=== PATIENT | female | born 1955 | race Caucasian/White ===

== ENCOUNTER → 2017-01-17 | Outpatient (CLI) | payer OTHER ==
[~2017-01-17] MED LIST: ALBUTEROL2.5 MG/31 INH; ASPIRIN325 MG PO; ATIVAN 1 MG1 MG PO; BENICAR HCT 401 EAC1 PO; BYSTOLIC10 MG PO; COLACE100 MG PO; CORDARONE,PACE200 MG PO; K-TAB 10MEQ10 MEQ PO; LASIX40 MG PO; LIPITOR80 MG PO; NICODERM / HABIT7 MG TRANS; NITROGLYCERIN4.9 GM SL; NORCO 5-325 TA1 EACH PO; NORVASC2.5 MG PO; PLAVIX75 MG PO; SYMBICORT 16010.2 GM INH
== END | disposition disaster alternative care site (69) ==
LOC: GBCOE 11:07
DX: N63 Unspecified lump in breast (principal); N60.01 Solitary cyst of right breast; R58 Hemorrhage, not elsewhere classified; Z80.3 Family history of malignant neoplasm of breast
CPT/HCPCS: G0204; G0279

== ENCOUNTER → 2017-01-23 | Outpatient (CLI) | payer OTHER ==
[~2017-01-23] VITALS: Ht 157.5 cm; Wt 87.3 kg
--- NOTE | 2017-01-23 11:44 | NUR ---
Met with patient prior to breast biopsy. Introduced self and role of nurse navigator. No questions at this time. Will call patient tomorrow.
== END | disposition disaster alternative care site (69) ==
LOC: GOPD 01-22
PROC: 0H9T3ZX Drainage of Right Breast, Percutaneous Approach, Diagnostic (ICD-10-PCS; principal; 2017-01-23)
DX: N64.1 Fat necrosis of breast (principal); N63 Unspecified lump in breast
CPT/HCPCS: J7050

== ENCOUNTER 2017-03-30 11:30 | Outpatient (CLI) | payer MEDICARE, OTHER ==
[~2017-03-30] VITALS: Ht 157.5 cm; Wt 92.7 kg
--- NOTE | ~2017-03-30 | ENPV ---
Vascular Lower Arterial Plethysmography Procedure Demographics Patient Name CHAZ JEFF Date of Study 03/30/2017 Patient Number [id number] Gender Female Date of 1955 Age 61 Visit Number [id number] Height 62 Weight 204.37 Number Referring Chavez Nicoleotis Interpreting Lorinou Bonnieotiderick Physician A Physician A Physician Ordering Efstratiou Panayotis Forestry Supervisor Physician A End User Consultant Chiki Munoz, T Conclusions Summary Right ankle/brachial index is 1.03 with no significant arterial disease at rest. Left ankle/brachial index is 0.77 with moderate arterial disease at rest. Right toe/brachial index is 0.77 and within normal limits. Left toe/brachial index is 0.56 suggestive of moderate arterial disease. The left brachial blood pressure is >20mmHg greater than the right brachial blood pressure suggestive of a more proximal right upper extremity obstruction (subclavian stenosis). Procedure Type of Study: Extremities Arteries:Lower Arterial Plethysmography, Ankle/Brachial Indicies. Indications for Study:Claudication and Reduced/Absent pulses. Appropriate Use Criteria:7 Allergies - Penicillin. - Penicillin. - Cephalosporines. - Other:(Cefaclor). Blood Pressure:Right arm 167/ mmHg.Left arm 205/ mmHg. Patient Status:Routine. Study Location:Inpatient Portable. Technical Quality:Adequate visualization. Risk Factors - The patient's risk factor(s) include: dyslipidemia and arterial hypertension. Velocities are measured in cm/s ; Diameters are measured in cm Pressures + ++--------+-----+----+--------+-----+ ! !!Right ! !Left! ! ! + ++--------+-----+----+--------+-----+ !Location !!Pressure!Ratio! !Pressure!Ratio! + ++--------+-----+----+--------+-----+ !Ankle PT !!207 !1.01 ! !158 !0.77 ! + ++--------+-----+----+--------+-----+ !DP !!211 !1.03 ! !143 !0.7 ! + ++--------+-----+----+--------+-----+ !Great Toe !!157 !0.77 ! !115 !0.56 ! + ++--------+-----+----+--------+-----+ - Brachial Pressure:Right: 167.Left:205. - MARJORIE:Right: 1.03.Left: 0.77. Plethysmographic Digit Evaluation +---------++--------+-----+ ++--------+-----+ + ! !!Right ! !Left !! ! ! ! +---------++--------+-----+ ++--------+-----+ + !Location !!Pressure!Ratio!PPG Wave Form !!Pressure!Ratio!PPG Wave Form ! +---------++--------+-----+ ++--------+-----+ + !Great Toe!!157 !0.77 ! !!115 !0.56 ! ! +---------++--------+-----+ ++--------+-----+ + Signature dtt: Tiffany Byrne dtd: 03/30/17 1203 Physician Self Edit
--- NOTE | ~2017-03-30 | ECHO ---
Transthoracic Echocardiography Report (TTE) Demographics Patient Name CHAZ JEFF Date of Study 03/30/2017 Patient Number [id number] Visit Number [id number] Date of 1955 Room Number G6305 Gender Female Number Age 61 year(s) Referring Chavez Obregon Residential Child Care Counselor Akira Maldonado RVT Physician Samantha STACY Physician Interpreting [facility] Wood Heel Flap Inserter Physician Mindi Singh MD Supervising Ordering [facility] MD/MLP Physician Mindi Singh MD Nurse Stress Patient Service Associate Conclusions Summary Technically difficult exam. The estimated left ventricular ejection fraction is 55-60%. Moderate concentric left ventricular hypertrophy. Diastolic assessment reveals Grade I diastolic dysfunction. The aortic root appears mildly dilated. The maximum diameter measures 3.2 cm. Procedure Type of Study TTE procedure:2D Echocardiogram. Procedure Date Date: 03/30/2017 Start: 12:20 PM Study Location: Inpatient Portable Technical Quality: Limited visualization due to body habitus. Indications:Angina. Appropriate Use Criteria: 9 Patient Status: Routine HR: 60 bpm Allergies - Penicillin. - Penicillin. - Cephalosporines. - Other:(Cefaclor). - Penicillin. - Cephalosporines. M-Mode/2D Measurements LV Diastolic Dimension: 4.84 cm LV Systolic Dimension: 3.76 cm LV Septum Diastolic: 1.48 cm LV PW Diastolic: 1.35 cm AO Root Dimension: 2.6 cm Cardiac Output: 3.05 l/min AV Cusp Separation: 1.9 cm LVOT: 2 cm RV Base: 2.62 cm LVOT VTI: 16.2 cm RV Mid: 1.95 cm LV Stroke volume: 50.87 ml TAPSE: 2.38 cm TDI-S': 10.2 cm/s Doppler Measurements AV Peak Velocity: 1.26 m/s MV Peak E-Wave: 0.56 m/s AV Peak Gradient: 6.35 mmHg MV Peak A-Wave: 0.63 m/s AV Mean Gradient: 4 mmHg MV E/A Ratio: 0.89 LVOT Peak Velocity: 0.66 m/s MV P1/2t: 98 msec TR Gradient:23.81 mmHg PV Peak Velocity: 0.95 m/s Estimated RAP:10 mmHg PV Peak Gradient: 3.62 mmHg Estimated RVSP: 34 mmHg Estimated PASP: 33.81 mmHg E' Septal Velocity: 0.04 m/s A' Septal Velocity: 0.07 m/s E' Lateral Velocity: 0.04 m/s A' Lateral Velocity: 0.06 m/s Findings Left Ventricle Moderate concentric left ventricular hypertrophy. Diastolic assessment reveals Grade I diastolic dysfunction. Right Ventricle Normal right ventricle structure and function. Left Atrium Normal left atrial size. Right Atrium IVC measures 2.03 cm with inspiratory collapse. Device lead seen in the right atrium. Mitral Valve Mild mitral annular calcification. Trivial mitral regurgitation by color Doppler. Aortic Valve The aortic valve was not well imaged. The aortic valve is mildly sclerotic. Tricuspid Valve Mild tricuspid regurgitation by color Doppler. Pulmonic Valve Trivial pulmonic valve regurgitation by color Doppler. Pericardial Effusion No evidence of pericardial effusion. Epicardial fat pad noted. Miscellaneous The aortic root appears mildly dilated. The maximum diameter measures 3.2 cm. Pleural Effusion No evidence of pleural effusion. Contractility Score LV regional wall motion:(0-Non visualized 1-Normal 2-Hypokinesis 3-Akinesis 4-Dyskinesis 5-Aneurysm) Signature dtt: Tiffany Byrne dtd: 03/30/17 5400 Physician Self Edit
--- NOTE | ~2017-03-30 | CATH ---
Demographics Patient Name RANDEE Lindsey Gender Female Date of 1955 Age 61 year(s) Patient Number [id number] Date of Study 03/30/2017 Visit Number [id number] Room Number G6305 [place] [id number] Ht 157.48 cm Wt 92.7 kg Referring Efstratiou Primary Physician Physician Mindi Singh MD Performing Efstratiou Secondary Physician Physician Mindi Singh MD Diagnostic Efstratiou Assisting Physician Physician Mindi Singh MD Interventional Efstratiou Physician Valve Maker Physician Mindi Singh MD Findings and Conclusions Diagnostic Findings and Conclusion Severe diffuse RCA stenosis and in stent re-stenosis. Diagnostic Recommendations PCI to RCA. Interventional Findings and Conclusion Successful TYRA x 3 to proximal, mid, and distal RCA. Interventional Recommendations ASA and Brilinta. Staged PCI to PDA due to CKD 3 - will also check renals and LLE. Peripheral Findings and Conclusions Evidence of right subclavian stenosis by doppler. Peripheral Recommendations No significant stenosis from the inominate to the brachial artery bifurcation Procedure Description The patient was brought to the diagnostic cardiac catheterization-EP laboratory in the fasting, non-sedated state. Informed consent was obtained in the written and verbal form after the risks and benefits were explained. The patient had no further questions and agreed to proceed. The planned puncture-incision site(s) were shaved and prepped with ChloraPrep and draped in the usual sterile manner. Conscious sedation, supplemental oxygen, and pain control medications were delivered by a registered nurse under physician guidance. Surface ECG rhythm, blood pressure measurement, and pulse oximetry were monitored throughout the procedure. Arterial access. The access site was infiltrated with lidocaine. The vessel was entered with the Seldinger technique. A sheath was advanced into the vessel and used for catheter placement. Selective Upper Extremity Angiography: Under fluoroscopic guidance a catheter was placed. Contrast was injected and images were obtained. Selective left coronary angiography. A catheter was advanced into the left coronary vessel ostium under Fluoroscopic guidance. Contrast was injected by hand. Images were obtained in multiple projections. Selective right coronary angiography. A catheter was advanced into the right coronary vessel ostium under fluoroscopic guidance. Contrast was injected by hand. Images were obtained in multiple projections. Angioplasty and Stent Placement: A guiding catheter was used to intubate the vessel. A 0.14 wire was then used to cross the lesion. A balloon catheter was placed across the lesion and inflated. The balloon catheter was then removed. A Drug Eluting Stent was placed and inflated. Post placement angiograms were performed. Arterial artery hemostasis was achieved. The patient was transferred to a regular nursing floor via cart accompanied by a nurse. The patient left the laboratory in stable condition. Diagnostic Cath Status: Elective Interventional Cath Status: Urgent Procedure Procedure Type Diagnostic procedure:Angiography:, Coronary Angios PCI procedure:Drug Eluting Coronary Stent:, RCA Peripheral Cath Diagnostic Procedure:Upper Extremity Angio:, Right Indications: Unstable angina. The procedure was explained in detail to the patient. Risks, complications and alternative treatments were reviewed. Written consent was obtained. Medications Reviewed with Patient prior to Procedure. Angiographic Findings Dominance: Right Cardiac Arteries and Lesion Findings LMCA: Single stenosis. Lesion on LMCA: Distal subsection.20% stenosis . LAD: Multiple stenosis. Lesion on Prox LAD: Mid subsection.50% stenosis . Lesion on Dist LAD: Mid subsection.20% stenosis . LCx: Multiple stenosis. Lesion on Prox CX: Mid subsection.20% stenosis . Lesion on 1st Ob Marilin: Mid subsection.20% stenosis . RCA: Multiple stenosis.There is a previous stent on Mid RCA Mid subsection. Lesion on Dist RCA: 95% stenosis 30 mm length reduced to 0%. Pre procedure RANDOLPH III flow was noted. Post Procedure RANDOLPH III flow was present. The guidewire cross was successful.The lesion was diagnosed as a high risk lesion.Culprit lesion. Treatment results:Dissection occurred while intervening.It was treated with a stent. Devices used - Whisper Wire .014 x 190. Number of passes: 1. - Emerge Balloon 2.0 x 15. 4 inflation(s) to a max pressure of: 14 elmer. - NC Emerge Balloon 3.0 x 20. 5 inflation(s) to a max pressure of: 22 elmer. - Emerge Balloon 2.5 x 12. 2 inflation(s) to a max pressure of: 10 elmer. - Promus Premier 2.5 x 24 Stent. 2 inflation(s) to a max pressure of: 16 elmer. - NC Emerge Balloon 3.0 x 12. 2 inflation(s) to a max pressure of: 16 lemer. Lesion on Prox RCA: Mid subsection.90% stenosis 24 mm length reduced to 0%. Pre procedure RANDOLPH III flow was noted. Post Procedure RANDOLPH III flow was present. The guidewire cross was successful.The lesion was diagnosed as a high risk lesion.Culprit lesion. Devices used - Promus Premier 3.0 x 24 Stent. 1 inflation(s) to a max pressure of: 16 elmer. Lesion on Mid RCA: Mid subsection.95% stenosis 24 mm length reduced to 0%. Pre procedure RANDOLPH III flow was noted. Post Procedure RANDOLPH III flow was present. The guidewire cross was successful.The lesion was diagnosed as a high risk lesion.Culprit lesion. Devices used - NC Emerge Balloon 3.5 x 15. 4 inflation(s) to a max pressure of: 14 elmer. - NC Emerge Balloon 3.0 x 12. 2 inflation(s) to a max pressure of: 20 elmer. - Promus Premier 3.0 x 38 Stent. 1 inflation(s) to a max pressure of: 14 elmer. - Promus Premier 3.0 x 38 Stent. 1 inflation(s) to a max pressure of: 20 elmer. Lesion on 1st RPL: Proximal subsection.30% stenosis . Lesion on R PDA: Proximal subsection.90% stenosis . Coronary Tree Procedure Data Procedure Date Date: 03/30/2017Start: 01:48 PMEnd: 03:37 PM Entry Locations - The Right Radial artery access attempt was not successful. Entry Comments: Unable to obtain access. Will move to femoral approach.. - Retrograde Percutaneous access was performed through the Right Femoral artery (Primary location). A 6 Fr sheath was inserted. Hemostasis was successfully obtained using Angio-Seal STS PLUS (St. Eric). Closure Comments: Deployed by Dr. Byrne.. Procedure Medications Order and Administration + + + + + !Time !Medication !Dosage !Route ! + + + + + !03/30/2017 01:46 PM !Fentanyl !50 mcg !I.V. ! + + + + + !03/30/2017 01:50 PM !Oxygen !2 l/min !NC ! + + + + + !03/30/2017 01:50 PM !Versed !1 mg ! ! + + + + + !03/30/2017 01:52 PM !Oxygen !4 l/min !NC ! + + + + + !03/30/2017 02:05 PM !Heparin (ACC_3) !8000 units !I.V. bolus ! + + + + + !03/30/2017 02:14 PM !Heparin (ACC_3) !6000 units !I.V. bolus ! + + + + + !03/30/2017 02:21 PM !Nitroglycerin !20 mcg/min !I.V. drip ! + + + + + !03/30/2017 02:23 PM !Integrilin (ACC_7) !20 mg !I.C. ! + + + + + !03/30/2017 02:26 PM !Nitroglycerin !35 mcg/min !I.V. drip ! + + + + + !03/30/2017 02:35 PM !Fentanyl !50 mcg !I.V. ! + + + + + !03/30/2017 02:52 PM !Oxygen !6 l/min !NC ! + + + + + !03/30/2017 02:53 PM !Nitroglycerin !25 mcg/min !I.V. drip ! + + + + + !03/30/2017 02:55 PM !Nitroglycerin !15 mcg/min !I.V. drip ! + + + + + !03/30/2017 02:57 PM !Heparin (ACC_3) !2000 units !I.V. bolus ! + + + + + !03/30/2017 02:58 PM !0.9% NaCl !300 ml !I.V. bolus ! + + + + + Devices Used - A6 Fr. BS JR 4 Diag. Catheterwas used for:Right coronary angiography. - A6 Fr. BS JL 3.5 Diag. Catheterwas used for:Left coronary angiography. - A6 Fr. JR4 Guide Catheterwas used for:RCA Intervention. Contrast Material - Isovue [id number] ml Fluoroscopy Time: Diagnostic: 25:48 minutes. Total: 25:48 minutes. Fluoroscopy Dose: Diagnostic: 2987 mGy. Total: 2987 mGy. Estimated Blood Loss: 15 ml. Medical History Allergies - Penicillin. - Penicillin. - Cephalosporines. - Other:(Cefaclor). Risk Factors The patient risk factors include:prior PCI;hypercholesterolemia, hypertension and dyslipidemia. Admission Data Admission Date: 03/30/2017 Admission Time: 11:30 AM Admit Source: Other Insurance Payors: Medicare. Admission Medications + +------+------+ + + + + !Medication !Dosage!Times !Last !Last !Administered !Comments ! ! ! !Per !Delivery !Delivery ! ! ! ! ! !Day !Date !Time ! ! ! + +------+------+ + + + + !Beta ! ! ! ! ! ! ! !Padmini ! ! ! ! ! ! ! !(any) ! ! ! ! ! ! ! + +------+------+ + + + + !Aspirin ! ! ! ! ! ! ! !(any) ! ! ! ! ! ! ! + +------+------+ + + + + !ARB (any) ! ! ! ! ! ! ! + +------+------+ + + + + Clinical Evaluation Leading to Procedure Diagnosed on 03/30/2017 12:00 AM. - The patient's CAD presentation was assessed as: Unstable angina. - The patient's anginal syndrome during the past two weeks was assessed as: Class IV according to the [place] Cardiovascular Society Classification System (CCS). Anti-anginal medications were prescribed during the past two weeks. The medication is: Beta Blockers. Snapshots Hemodynamics Condition: Rest O2 Consumption: Estimated: 175.10Heart Rate: 60 bpm Pressures (mmHg) +-----+ + !Site !Pressure ! +-----+ + !AO !187/94 (129) ! +-----+ + !AO !198/98 (137) ! +-----+ + !AO !147/89 (113) ! +-----+ + !AO !119/70 (90) ! +-----+ + !AO !82/50 (63) ! +-----+ + !AO !131/80 (102) ! +-----+ + Shunts Oxygen Values O2 Capacity 217.6 O2 Consumption 175.1 Signatures dtt: Tiffany Byrne dtd: 03/30/17 1348 Physician Self Edit
--- NOTE | ~2017-03-30 | ECHO ---
Transthoracic Echocardiography Report (TTE) Demographics Patient Name CHAZ JEFF Date of Study 03/30/2017 Patient Number [id number] Visit Number [id number] Date of 1955 Room Number G6305 Gender Female Number Age 61 year(s) Referring Chavez Obregon Diabetes Manager Gloria [facility], Physician Samantha STACY RVT Physician Interpreting Efstrati Fab[employer] Coating Supervisor Physician Mindi Singh MD Supervising [facility]ing [facility]/MLP Physician Mindi Singh MD Nurse Stress Loan Clerk Conclusions Summary The estimated left ventricular ejection fraction is 55-60%. Technically difficult exam. Mild concentric left ventricular hypertrophy. Mild mitral annular calcification. Trivial mitral regurgitation by color Doppler. The aortic valve was not well imaged. The aortic valve is mildly sclerotic. Epicardial fat pad noted. Procedure Type of Study TTE procedure:2D Echocardiogram. Procedure Date Date: 03/30/2017 Start: 12:00 AM Study Location: Inpatient Portable Indications:Dyspnea/SOB. Additional Indications:sudden on set sob post cath Appropriate Use Criteria: 9 Patient Status: Routine Rhythm: Within normal limits HR: 60 bpm BP: 186/91 mmHg Allergies - Penicillin. - Penicillin. - Cephalosporines. - Other:(Cefaclor). M-Mode/2D Measurements LV Diastolic Dimension: 4.79 cm LV Septum Diastolic: 1.23 cm AO Root Dimension: 2.36 cm LV PW Diastolic: 1.07 cm LA Dimension: 4.05 cm LVOT: 2.1 cm RV Base: 493 cm RV Mid: 2.03 cm RV Length: 3.49 cm TAPSE: 2.53 cm TDI-S': 14 cm/s Doppler Measurements AV Peak Velocity: 1.59 m/s MV Peak E-Wave: 0.44 m/s AV Peak Gradient: 10.11 mmHg MV Peak A-Wave: 0.54 m/s AV Mean Gradient: 5 mmHg MV E/A Ratio: 0.81 Findings Left Ventricle The estimated left ventricular ejection fraction is 55%. Technically difficult exam. Mild concentric left ventricular hypertrophy. Right Ventricle Device lead noted in the right ventricle. Left Atrium Normal left atrial size. Right Atrium Normal right atrial size. Mitral Valve Mild mitral annular calcification. Trivial mitral regurgitation by color Doppler. Aortic Valve The aortic valve was not well imaged. The aortic valve is mildly sclerotic. Tricuspid Valve Mild tricuspid regurgitation by color Doppler. The tricuspid valve is not well visualized. Pulmonic Valve The pulmonic valve is not well visualized. Pericardial Effusion Epicardial fat pad noted. Miscellaneous no subcostal seen due to patent terminating study. Pleural Effusion No evidence of pleural effusion. Signature dtt: Tiffany Byrne dtd: 03/30/17 0000 Physician Self Edit
[~2017-03-30 11:30] MED LIST changes: -ALBUTEROL2.5 MG/31 INH; -ATIVAN 1 MG1 MG PO; -BENICAR HCT 401 EAC1 PO; -COLACE100 MG PO; -CORDARONE,PACE200 MG PO; -K-TAB 10MEQ10 MEQ PO; -LASIX40 MG PO; -LIPITOR80 MG PO; -NICODERM / HABIT7 MG TRANS; -NITROGLYCERIN4.9 GM SL; -NORCO 5-325 TA1 EACH PO; -NORVASC2.5 MG PO; -PLAVIX75 MG PO
[2017-03-30] MEDS ORDERED: ALBUTEROL2.5 MG/31 INH (12:06)
[2017-03-30] MEDS ORDERED: BENICAR HCT 401 EAC1 PO (12:06)
[2017-03-30] MEDS ORDERED: NITROGLYCERIN4.9 GM SL (12:07)
[2017-03-30 13:11] LABS: BASOPHIL # 0.1 K/uL (0.0-0.2); BASOPHIL % 0.7 %; EOSINOPHIL # 0.2 K/uL (0.0-0.5); EOSINOPHIL % 3.2 %; HEMATOCRIT 46.9 % (33.0-46.0); IMMATURE GRANULOCYTE % 0.3 %; LYMPHOCYTE # 1.9 K/uL (0.8-4.0); LYMPHOCYTE % 26.2 %; MCH 33.9 pg (27.0-34.0); MCHC 34.1 gm/dL (32.0-36.5); MCV 99.4 fl (83.0-98.0); MONOCYTE # 0.4 K/uL (0.0-1.0); MONOCYTE % 5.5 %; MPV 10.3 fl (9.4-12.4); NEUTROPHIL # (ANC) 4.6 K/uL (1.8-7.8); NEUTROPHIL % 64.1 %; NRBC % 0 /100WBC (0-0.00); PLATELET COUNT 240 K/uL (150-450); RBC 4.72 M/uL (3.50-5.50); RDW-CV 13.5 % (11.9-14.6); WBC 7.1 K/uL (4.0-11.0)
[2017-03-30 13:18] LABS: INR - (THERAPEUTIC) 0.94 (0.92-1.07); PROTIME 9.9 SECONDS (9.8-11.4); PTT 29 SECONDS (25-32)
[2017-03-30 13:32] LABS: ALBUMIN 3.5 gm/dL (3.5-5.0); ANION GAP 7.9 (10.0-19.0); CALCIUM 9.1 mg/dL (8.5-10.5); CREATININE 1.1 mg/dL (0.5-1.1); POTASSIUM 3.9 mMol/L (3.7-5.1); TOTAL BILIRUBIN 0.7 mg/dL (0.0-1.5); TOTAL PROTEIN 7.2 g/dL (6.0-8.4)
[2017-03-30 17:02] LABS: CPK 38 IU/L (21-215)
--- NOTE | 2017-03-30 19:45 | NUR ---
PATIENT TO PCU FROM MANUFACTURING TECHNICIAN AT 15:30. RIGHT GROIN SOFT, NO HEMATOMA OR BLEEDING. BEDREST ORDERED FOR 3 HRS, AMBULATE AT 4 HRS. PATIENT WAS COOPERATIVE WITH BEDREST ORDERS. FAMILY AT BEDSIDE. AT ABOUT 17:00, PATIENT SAT UP IN BED AND APPEARED TO BE IN RESPIRATORY DISTRESS. SATS WERE STILL HIGH 90'S ON RA. PATIENT STATED SHE NEEDED A BREATHING TREATMENT. RT WAS NOTIFIED AND AFTER DISCUSSING WITH PATIENT, GAVE HER A BREATHING TX. PATIENT STILL APPEARED TO BE HAVING PERIODS OF DISTRESS AND WAS UNABLE TO LAY FLAT FOR BEDREST. DR KIRBY WAS NOTIFIED AND ASSESSED PATIENT. STAT CXR AND ECHO WERE COMPLETED. DR KIRBY WAS AT PATIENT'S BEDSIDE. IV MEDICATIONS WERE ORDERED AND PATIENT APPEARED TO BE MUCH IMPROVED, AND NOT IN DISTRESS AFTER THE MEDICATIONS WERE GIVEN. CONTINUED ON 4L NC, PATIENT WOULD AT TIMES TAKE OXYGEN OFF AND SAT PROBE OFF. NURSE REINFORCED NEED FOR CONTINUOUS OXYGEN AND OXYGEN MONITORING. PATIENT DID NOT ADHERE TO BEDREST AND AFTER USING BEDPAN FOR SEVERAL TIMES AND SITTING UP IN BED, PATIENT GOT OUT OF BED TO USE BATHROOM. NURSE ATTEMPTED TO CONVINCE PATIENT TO RETURN TO BED AND PATIENT REFUSED. NURSE ASSISTED PATIENT TO BATHROOM AFTER MULTIPLE ATTEMPTS TO KEEP PATIENT ON BEDREST.
--- NOTE | 2017-03-31 01:18 | NUR ---
Patient verbalized that she wanted to leave the hospital. Margarito STARKS educated the importance and safety of hospitalization after the heart cath procedure. Margarito RN notified charge, Azeb STARKS. Azeb STARKS spoke with patient and educated with patient on the risks of refusing hospital care post heart cath. Discussed obtaining prescriptions with patient and the availability to obtain medications over a holiday weekend as the patient said she uses [facility] for medications. Patient said she would use [facility] for refills. House superviser Nancy was notified of situation. Patient continue to verbalize that she wanted to leave the hospital tonight. Ishmael STARKS notified Dr. Byrne of the situation and patient's persistence to leave. Dr. Bolivar stated he will call in scripts to [facility]. Patient signed AMA form. Security escorted patient out at approximately 2200.
[2017-04-11] MEDS ORDERED: PLAVIX75 MG PO (09:41)
== END 2017-03-30 22:00 | disposition left against medical advice (07) ==
LOC: GPOC 11:30 → GPCU 11:30 → GPOC 22:00
PROVIDERS: Internal Medicine Cardiovascular Disease
PROC: B31H1ZZ Fluoroscopy of Right Upper Extremity Arteries using Low Osmolar Contrast (ICD-10-PCS; principal; 2017-03-30)
PROC: B2111ZZ Fluoroscopy of Multiple Coronary Arteries using Low Osmolar Contrast (ICD-10-PCS; principal; 2017-03-30)
PROC: 027034Z Dilation of Coronary Artery, One Artery with Drug-eluting Intraluminal Device, Percutaneous Approach (ICD-10-PCS; principal; 2017-03-30)
DX: T82.855A Stenosis of coronary artery stent, initial encounter (principal); I20.0 Unstable angina; R60.9 Edema, unspecified; I73.9 Peripheral vascular disease, unspecified; I10 Essential (primary) hypertension; E78.5 Hyperlipidemia, unspecified; F17.210 Nicotine dependence, cigarettes, uncomplicated; Z82.49 Family history of ischemic heart disease and other diseases of the circulatory system
CPT/HCPCS: C1725; C1760; C1769; C1874; C1887; C1894; C9600; J0280; J0461; J1327; J1644; J1940; J2001; J2250; J3010; J7030; J7060

== ENCOUNTER 2017-04-16 05:51 | Outpatient (CLI) | payer MEDICARE ==
[~2017-04-16] VITALS: Ht 160 cm; Wt 88.7 kg
--- NOTE | ~2017-04-16 | ENPV ---
Carotid Duplex Study Demographics Patient Name CHAZ JEFF Date of Study 04/16/2017 Patient Number [id number] Gender Female Date of 1955 Age 61 Visit Number [id number] Height 62.99 Weight 195.55 Number Referring Chavez Obregon Interpreting Chavez Obregon Physician A Physician A Physician Ordering Chavez Obregon Sprinkler Worker Physician A Glass Beveller Akira Maldonado [facility] Conclusions Summary The right internal carotid artery has mild, 1-39%, plaque and stenosis. The right vertebral artery is present with antegrade flow. The left internal carotid artery has mild, 1-39%, plaque and stenosis. The left vertebral artery is present with antegrade flow. Procedure Type of Study: Cerebral:Carotid, Carotid Doppler Bilateral. Indications for Study:Pre-Op CABG. Appropriate Use Criteria:9 Allergies - Penicillin. - Penicillin. - Cephalosporines. - Other:(Cefaclor). - Penicillin. - Cephalosporines. Patient Status:Routine. Study Location:Inpatient Portable. Technical Quality:Adequate visualization. Risk Factors - The patient's risk factor(s) include: chronic lung disease, dyslipidemia, obesity, lack of physical activity, arterial hypertension and prior [place] . - The patient has a current/recent (within 1 year) tobacco history. - The patient's last creatinine was 1.2 mg/dl. Velocities are measured in cm/s ; Diameters are measured in cm Carotid Right Measurements Carotid Left Measurements + +--------+--------+ + + + +--------+ --------+ + + !Location !PSV !EDV !Angle !%Stenosis ! !Location !PSV ! EDV !Angle !%Stenosis ! + +--------+--------+ + + + +--------+ --------+ + + !Prox CCA !61 !10 !38 ! ! !Prox CCA !69 ! 13 !46 ! ! + +--------+--------+ + + + +--------+ --------+ + + !Dist CCA !73 !14 !60 ! ! !Dist CCA !72 ! 11 !56 ! ! + +--------+--------+ + + + +--------+ --------+ + + !Prox ICA !72 !29 !58 ! ! !Prox ICA !66 ! 20 !48 ! ! + +--------+--------+ + + + +--------+ --------+ + + !Mid ICA !44 !10 !28 ! ! !Dist ICA !56 ! 22 !26 ! ! + +--------+--------+ + + + +--------+ --------+ + + !Dist ICA !44 !16 !16 ! ! !Prox ECA !108 ! !26 ! ! + +--------+--------+ + + + +--------+ --------+ + + !Prox ECA !116 ! !46 ! ! !Vertebral !61 ! !58 ! ! + +--------+--------+ + + + +--------+ --------+ + + !Vertebral !38 ! !44 ! ! !Subclavian !100 ! ! ! ! + +--------+--------+ + + + +--------+ --------+ + + !Subclavian !66 ! ! ! ! + +--------+--------+ + + - There is antegrade vertebral flow noted on the right side. - There is antegrade verte bral flow noted on the left side. - Add'l Measurements:ICAPSV/CCAPSV 1.18.ICAEDV/CCAEDV 2.91. - Add'l Measurements:ICAPS V/CCAPSV 0.95.ICAEDV/CCAEDV 1.75. Impressions Right Impression There is a mild amount of calcified plaque in the right carotid bifurcation . Left Impression There is a mild amount of calcified plaque in the left carotid bifurcation . Signature dtt: Tiffany Byrne dtd: 04/16/17 1339 Physician Self Edit
--- NOTE | ~2017-04-16 | ENPV ---
Vascular Lower Extremity Vein Mapping Procedure Demographics Patient Name CHAZ JEFF Date of Study 04/16/2017 Patient Number [id number] Gender Female Date of 1955 Age 61 Visit Number [id number] Height 62.99 Weight 195.55 Number Referring Chavez Obregon Interpreting Chavez Obregon Physician A Physician A Physician Ordering Chavez Nicoleotiderick Chalk Cutter Physician A Gauntlet Pairer Akira Maldonado RVT Conclusions Summary Both GSV are suitable for harvest. Procedure Type of Study: Veins:Lower Extremity Vein Mapping, Vein Mapping. Indications for Study:Pre-Op CABG. Appropriate Use Criteria:9 Allergies - Penicillin. - Penicillin. - Cephalosporines. - Other:(Cefaclor). - Penicillin. - Cephalosporines. Patient Status:Routine. Study Location:Inpatient Portable. Technical Quality:Adequate visualization. Risk Factors - The patient's risk factor(s) include: chronic lung disease, dyslipidemia, obesity, lack of physical activity, arterial hypertension and prior [place] . - The patient has a current/recent (within 1 year) tobacco history. - The patient's last creatinine was 1.2 mg/dl. Velocities are measured in cm/s ; Diameters are measured in cm + ++--------++--------+ !Superficial - Great Saphenous Vein !!Right !!Left ! + ++--------++--------+ !Location !!Diameter!!Diameter! + ++--------++--------+ !Sapheno Femoral Junction !!0.38 !! ! + ++--------++--------+ !GSV High Thigh !!0.35 !!0.31 ! + ++--------++--------+ !GSV Mid Thigh !!0.29 !!0.35 ! + ++--------++--------+ !GSV Low Thigh !!0.29 !!0.33 ! + ++--------++--------+ !GSV Knee !!0.27 !!0.32 ! + ++--------++--------+ !GSV High Calf !!0.25 !!0.28 ! + ++--------++--------+ !GSV Mid Calf !!0.24 !!0.17 ! + ++--------++--------+ !GSV Low Calf !!0.23 !!0.27 ! + ++--------++--------+ Signature dtt: dtd: 04/16/17 1356 Physician Self Edgalindo
--- NOTE | ~2017-04-16 | CON ---
PATIENT'S NAME: CHAZ JEFF [facility] AGE: 61 Y [address] ROOM: [place] [address] LOCATION: GPCU ADMIT DATE: 04/16/2017 Consultation DISCHARGE DATE: 04/16/2017 FAMILY PHYSICIAN: PHYSICIAN, NO ATTENDING PHYSICIAN: Tiffany Byrne DATE OF CONSULTATION: 04/16/2017 CONSULTATION NOTE REQUESTING PHYSICIAN: Tiffany Byrne MD REASON FOR CONSULTATION: Unstable angina, coronary artery disease, not amenable to percutaneous intervention/stenting. HISTORY OF PRESENT ILLNESS: The patient is a 61-year-old white female with a longstanding history of coronary artery disease, who presents today to Dr. Byrne for a stage PCI. The patient has had a long-standing history with coronary artery disease with multiple stent placements. Most recently, the patient underwent intervention on 03/30/[address] Byrne for which to the right, he was able to successfully place drug-eluting stents to the proximal, mid, and distal RCA. The plan was for the patient to return today for further intervention, however, intervention to the PDA failed secondary to tortuosity. Today's catheterization demonstrates patent stents to the proximal, mid, and distal RCA with a 50% proximal LAD stenosis. Since Dr. Byrne was unable to cross with the guidewire to the PDA due to extreme tortuosity, interventional recommendations are to include coronary artery bypass grafting to the LAD and the PDA. Dr. Johnson was asked to see the patient in consultation for surgical intervention. Incidentally, the patient underwent an echocardiogram on 03/30/2017. The ejection fraction was measured at 45% to 50%. There was no valvular heart disease identified. PAST MEDICAL HISTORY: Illnesses: 1. Peripheral vascular disease. 2. Coronary artery disease. 3. Dyslipidemia. 4. Obesity. 5. High-risk medications, Plavix. 6. Chronic kidney disease, stage 3. 7. History of CVA affecting the right side, now resolved. 8. Diastolic CHF. PATIENT'S NAME: CHAZ JEFF [facility] AGE: 61 Y [address] ROOM: [place] [address] LOCATION: GPCU ADMIT DATE: 04/16/2017 Consultation DISCHARGE DATE: 04/16/2017 FAMILY PHYSICIAN: PHYSICIAN, NO ATTENDING PHYSICIAN: Tiffany Byrne 9. Hypertension. 10. Unstable angina. 11. Tobaccoism. 12. Neurocardiogenic syncope, status post dual-chamber pacemaker placement. 13. COPD. 14. Anxiety. 15. Hyperparathyroidism. 16. GERD. PAST SURGICAL HISTORY: Surgery/procedures: 1. Percutaneous intervention with stenting to the mid RCA, proximal RCA, and proximal PDA in August 2006. 2. PCI with stenting to the mid RCA in January 2008. 3. PCI with stenting to the distal circumflex in August 2008. 4. PCI with stents to the proximal RCA in July 2009. 5. Heart catheterization, reviewing the patency of circumflex stent. Patent stent in the RCA with 50% in-stent re-stenosis and possible RCA thrombus. 6. Cardiac catheterization and PCI to the proximal, mid RCA in August 2014 and cardiac catheterization and PCI to the RCA with drug-eluting stents to the proximal, mid, and distal RCA. 7. Echocardiogram on 03/30/2017. 8. Laparoscopic gastric banding. 9. Tonsillectomy. 10. Appendectomy. 11. Hysterectomy. 12. Oophorectomy. 13. Laparoscopic cholecystectomy. 14. Parathyroid surgery. 15. ORIF, left femur. 16. Excision of skin cancer to the chest. 17. Dual-chamber pacemaker placement. 18. Pacemaker generator exchange. 19. Left breast biopsy. ALLERGIES: PENICILLINS/CEPHALOSPORINS. SOCIAL HISTORY: The patient is . She resides here in [place]. She has grown children. She works as a high school biology teacher. She smokes at least one pack of cigarettes a day and has done so since a very young age. She denies consumption of alcohol. FAMILY HISTORY: PATIENT'S NAME: CHAZ JEFF [facility] AGE: 61 Y [address] ROOM: [address] [place] [address] LOCATION: GPCU ADMIT DATE: 04/16/2017 Consultation DISCHARGE DATE: 04/16/2017 FAMILY PHYSICIAN: PHYSICIAN, NO ATTENDING PHYSICIAN: Tiffany Byrne Her father had a history of having had myocardial infarction as well as a stroke. He did pass away as a result of the stroke. Her mother had history of diabetes mellitus, hypertension, congestive heart failure, and breast cancer. HOME MEDICATIONS: Include: 1. Bystolic 10 mg b.i.d. 2. Aspirin 325 mg daily. 3. Plavix 75 mg daily. 4. Nitroglycerin spray 1 spray p.r.n. chest pain as directed. 5. Benicar HCT 40/25 mg daily. 6. Symbicort 160/4.5 mcg per inhalation b.i.d. 7. Albuterol per inhalation b.i.d. REVIEW OF SYSTEMS: GENERAL: No complaints of weight or appetite changes. No fever, chills, or sweats. The patient has been asymptomatic with complaints of shortness of breath and ongoing unstable angina for which she requires nitroglycerin with just minor exertional activities. HEENT: Does have age-related vision changes. No hearing complaints. She does have difficulty swallowing, choking on certain foods. She has a top denture, but wears nothing on the bottom. RESPIRATORY: She has been short of breath with rest and dyspneic on exertion. CARDIOVASCULAR: Has had atypical chest pains mostly presenting as bilateral shoulder blade pain. GASTROINTESTINAL: There are occasional GERD like symptoms. No ongoing constipation, diarrhea, nausea, or vomiting. GENITOURINARY: No voiding complaints. MUSCULOSKELETAL: She does not require ambulatory devices for getting around. NEUROLOGIC: The patient did have a history of CVA over 10 years ago. It affected the right side, but she no longer experiences weakness. PSYCHIATRIC: Does have a history of anxiety. ENDOCRINE: No diagnosed diabetes. INTEGUMENT: No known skin diseases. PHYSICAL EXAMINATION: VITAL SIGNS: Blood pressure is 188/91, pulse is 61, respirations 16, temperature 98 degrees, and O2 saturations 92%. Weight is 88.7 kg, height is 157 cm. GENERAL: The patient has just returned to the catheterization lab. She is lying flat in bed as per the conditions of her post catheterization. She does appear older than her stated age. She is hungry and is busy eating. HEENT: Normocephalic. EOMs intact. She does not have any dentures or her own teeth in place. PATIENT'S NAME: CHAZ JEFF [facility] AGE: 61 Y [address] ROOM: [place] [address] LOCATION: GPCU ADMIT DATE: 04/16/2017 Consultation DISCHARGE DATE: 04/16/2017 FAMILY PHYSICIAN: PHYSICIAN, NO ATTENDING PHYSICIAN: Tiffany Byrne LUNGS: Clear to auscultation to the anterior bilaterally. CARDIOVASCULAR: Regular rate and rhythm with no murmur detected. ABDOMEN: Obese, soft, nontender by four quadrants and positive bowel sounds throughout. EXTREMITIES: No overt varicosities or edema. NEUROLOGIC: Alert and oriented with symmetrical strength. SKIN: No suspicious skin lesions. LABORATORY DATA: Laboratory results: CMS; sodium is 143, potassium 3.8, BUN 18, and creatinine 1.2. Liver function studies are all normal. Lipid profile; her cholesterol is 213, triglycerides 186, HDL 45, and LDL 131. CBC; her WBCs are 7.7, hemoglobin 14.7, hematocrit 42.5, and platelets are 219,000. Her P2 Y12 is 179. Her INR is 0.93. Her cardiac catheterization and echocardiogram are as per HPI. IMPRESSION: Dr. Johnson, has observed the cardiac catheterization studies. Per the review of the films, the patient will need bypasses to the left anterior descending and the posterior descending artery. Dr. Johnson spoke to the patient and her family with regard to surgical revascularization. Risks and benefits of the procedure were discussed. Discussion of the risks include, but were not limited to, bleeding, requiring transfusion, return to the operative suite, myocardial infarction, cerebrovascular accident, renal and/or pulmonary failure. Also discussed were arrhythmias and infection as well as operative and postoperative mortality. Length of stay and restrictions thereafter were discussed during this interview. The patient does not wish to spend the night tonight and would like to get some arrangements made to return tomorrow for her preop and have surgery on Sunday. Dr. Byrne was made aware of the patient's plan. All providers were in agreement, and we will plan for this surgery on 04/18/2017. We would like to thank Dr. Byrne for allowing us to participate in the care of this lady. EVELINE ALVARENGA APRN FOR MARY JOHNSON, DO DLQ/modl PATIENT'S NAME: CHAZ JEFF [facility] AGE: 61 Y [address] ROOM: [id number] [place] [id number] LOCATION: [facility] ADMIT DATE: 04/16/2017 Consultation DISCHARGE DATE: 04/16/2017 FAMILY PHYSICIAN: ESME BARCLAY ATTENDING PHYSICIAN: Tiffany Byrne /[id number] d: 04/16/17 1640 t: 04/18/17 1203, CONSULTATION REPORT
--- NOTE | ~2017-04-16 | CATH ---
Cardiac Diagnostic + PCI Report Demographics Patient Name RANDEE Lindsey Gender Female Date of 1955 Age 61 year(s) Patient Number [id number] Date of Study 04/16/2017 Visit Number [id number] Room Number G[address] [place] [id number] Ht 160 cm Wt 88.7 kg Referring Efstratiou Primary Physician Physician Mindi Singh MD Performing Efstratiou Secondary Physician Physician Mindi Singh MD Diagnostic Efstratiou Assisting Physician Physician Mindi Singh MD Interventional Efstratiou Physician Fisher Diving Physician Mindi Singh MD Findings and Conclusions Diagnostic Findings and Conclusion Patent stents to prox , mid, and distal RCA 50% prox LAD stenosis Interventional Findings and Conclusion Unable to cross with guidewire to PDA due to extreme tortuosity Interventional Recommendations CABG to LAD,PDA Procedure Description The patient was brought to the diagnostic cardiac catheterization-EP laboratory in the fasting, non-sedated state. Informed consent was obtained in the written and verbal form after the risks and benefits were explained. The patient had no further questions and agreed to proceed. The planned puncture-incision site(s) were shaved and prepped with Chloroprep and draped in the usual sterile manner. Conscious sedation and pain control medications were delivered by a registered nurse under physician guidance. Surface ECG rhythm, blood pressure measurement, and pulse oximetry were monitored throughout the procedure. Angioplasty: A guiding catheter was used to intubate the vessel. A 0.14 wire was used to attempt crossing of the lesion which was unsuccessful. Diagnostic Cath Status: Elective Procedure Procedure Type Diagnostic procedure PCI procedure:PTCA:, PDA, Attempted Indications: Angina. The procedure was explained in detail to the patient. Risks, complications and alternative treatments were reviewed. Written consent was obtained. Medications Reviewed with Patient prior to Procedure. Angiographic Findings Dominance: Right Cardiac Arteries and Lesion Findings LAD: Lesion on Prox LAD: Proximal subsection.50% stenosis . Devices used - Whisper Wire .014 x 190. Number of passes: 2. - Choice PT Extra-Support Wire .014 x 182. Number of passes: 1. RCA: There is a previous stent on Mid RCA Mid subsection. There is a previous stent on Dist RCA. There is a previous stent on Prox RCA Mid subsection. There is a previous stent on Mid RCA Mid subsection. There is a previous stent on Mid RCA Mid subsection. Lesion on R PDA: Proximal subsection.90% stenosis . Pre procedure RANDOLPH II flow was noted. A poor run off was present.The lesion was diagnosed as a high risk lesion.Culprit lesion. Coronary Tree Procedure Data Procedure Date Date: 04/16/2017Start: 07:57 AMEnd: 09:29 AM Entry Locations - Retrograde Percutaneous access was performed through the Left Femoral artery (Primary location). A 6 Fr sheath was inserted. Hemostasis was successfully obtained using Manual Compression. Entry Comments: rt groin approach unsuccessful due to scar tissue moving to lt groin. Closure Comments: lt groin pressure held by robert. Procedure Medications Order and Administration + + + + + !Time !Medication !Dosage !Route ! + + + + + 04/16/2017 07:53 AM !Fentanyl !50 mcg !I.V. ! + + + + + 04/16/2017 07:53 AM !Versed !1 mg !I.V. ! + + + + + 04/16/2017 08:00 AM !Versed !1 mg !I.V. ! + + + + + !04/16/2017 08:00 AM !Fentanyl !25 mcg !I.V. ! + + + + + !04/16/2017 08:01 AM !Fentanyl !25 mcg !I.V. ! + + + + + !04/16/2017 08:04 AM !Oxygen !2 l/min !NC ! + + + + + !04/16/2017 08:07 AM !Heparin (ACC_3) !8000 units !I.V. bolus ! + + + + + !04/16/2017 08:28 AM !Fentanyl !25 mcg !I.V. ! + + + + + !04/16/2017 08:49 AM !Protamine !20 mg !I.V. ! + + + + + !04/16/2017 09:20 AM !Fentanyl !50 mcg !I.V. ! + + + + + Devices Used - A6 Fr. AL1 Guide Catheterwas used for:RPDA Intervention. Contrast Material - Isovue 59319 ml Fluoroscopy Time: Diagnostic: 23:36 minutes. Total: 23:36 minutes. Fluoroscopy Dose: Diagnostic: 1760 mGy. Total: 1760 mGy. Estimated Blood Loss: 15 ml. Medical History Allergies - Penicillin. - Penicillin. - Cephalosporines. - Other:(Cefaclor). - Penicillin. - Cephalosporines. Risk Factors The patient risk factors include:prior PCI on 03/30/2017;peripheral arterial disease, obesity, physical activity, hypercholesterolemia, hypertension, family history of premature CAD, chronic lung disease, last creatinine: 1.2 mg/dl, creatinine clearance: 68.94 ml/min, dyslipidemia, Current/Recent(w/in 1 year) tobacco use and prior [place] . Admission Data Admission Date: 04/16/2017 Admission Time: 05:51 AM Admit Source: Other Insurance Payors: Medicare. Admission Medications + +------+------+ + + + + !Medication !Dosage!Times !Last !Last !Administered !Comments ! ! ! !Per !Delivery !Delivery ! ! ! ! ! !Day !Date !Time ! ! ! + +------+------+ + + + + !Beta Padmini! ! ! ! ! ! ! !(any) ! ! ! ! ! ! ! + +------+------+ + + + + !ARB (any) ! ! ! ! ! ! ! + +------+------+ + + + + !Aspirin ! ! ! ! ! ! ! !(any) ! ! ! ! ! ! ! + +------+------+ + + + + !Clopidogrel ! ! ! ! ! ! ! + +------+------+ + + + + Snapshots Hemodynamics Condition: Rest O2 Consumption: Estimated: 174.22Heart Rate: 60 bpm Pressures (mmHg) +-----+ + !Site !Pressure ! +-----+ + !AO !166/82 (115) ! +-----+ + Shunts Oxygen Values O2 Capacity 199.92 O2 Consumption 174.22 Signatures dtt: Tiffany Byrne dtd: 04/16/17 0757 Physician Self Edit
[~2017-04-16 05:51] MED LIST changes: +ALBUTEROL2.5 MG/31 INH; +BENICAR HCT 401 EAC1 PO; +NITROGLYCERIN4.9 GM SL; +PLAVIX75 MG PO
[2017-04-16 06:44] LABS: BASOPHIL % 0.4 %; EOSINOPHIL # 0.3 K/uL (0.0-0.5); EOSINOPHIL % 4.4 %; HEMATOCRIT 42.5 % (33.0-46.0); HEMOGLOBIN 14.7 g/dL (10.0-15.0); IMMATURE GRANULOCYTE % 0.3 %; LYMPHOCYTE # 2.1 K/uL (0.8-4.0); LYMPHOCYTE % 26.9 %; MCH 34.1 pg (27.0-34.0); MCHC 34.6 gm/dL (32.0-36.5); MCV 98.6 fl (83.0-98.0); MONOCYTE # 0.4 K/uL (0.0-1.0); MONOCYTE % 4.7 %; MPV 10.1 fl (9.4-12.4); NEUTROPHIL # (ANC) 4.9 K/uL (1.8-7.8); NEUTROPHIL % 63.3 %; NRBC % 0 /100WBC (0-0.00); PLATELET COUNT 219 K/uL (150-450); RBC 4.31 M/uL (3.50-5.50); RDW-CV 13.5 % (11.9-14.6); WBC 7.7 K/uL (4.0-11.0)
[2017-04-16 07:01] LABS: ALBUMIN 3.3 gm/dL (3.5-5.0); ANION GAP 12.8 (10.0-19.0); CALCIUM 8.8 mg/dL (8.5-10.5); CREATININE 1.2 mg/dL (0.5-1.1); POTASSIUM 3.8 mMol/L (3.7-5.1); TOTAL PROTEIN 6.7 g/dL (6.0-8.4)
[2017-04-16 07:02] LABS: TOTAL BILIRUBIN 0.2 mg/dL (0.0-1.5)
[2017-04-16 07:20] LABS: INR - (THERAPEUTIC) 0.93 (0.92-1.07); PROTIME 9.8 SECONDS (9.8-11.4)
--- NOTE | 2017-04-16 10:48 | NUR ---
1045 ATIVAN 1 MG PO FOR C/O ANXIETY PER DR JOHNSON'S ORDER
--- NOTE | 2017-04-16 13:42 | NUR ---
1300 PT UPSET, STATES SHE IS GOING TO GET OUT OF BED. SITS UP ON CART. BELLIGERENT AND ANGRY. DR Mahmood NOTIFIED 1315 DR Mahmood HERE TO SEE PT
[2017-04-16] MEDS ORDERED: ATIVAN 1 MG1 MG PO (13:55)
[2017-04-16] MEDS ORDERED: LIPITOR80 MG PO (13:56)
== END 2017-04-16 14:40 | disposition disaster alternative care site (69) ==
LOC: GPOC 05:51 → GPCU 05:51 → GPOC 06:00
PROVIDERS: Internal Medicine Cardiovascular Disease
PROC: 4A023N7 Measurement of Cardiac Sampling and Pressure, Left Heart, Percutaneous Approach (ICD-10-PCS; principal; 2017-04-16)
PROC: B216YZZ Fluoroscopy of Right and Left Heart using Other Contrast (ICD-10-PCS; 2017-04-16)
DX: Z01.818 Encounter for other preprocedural examination (principal); I25.110 Atherosclerotic heart disease of native coronary artery with unstable angina pectoris; I20.0 Unstable angina; I65.21 Occlusion and stenosis of right carotid artery; I65.22 Occlusion and stenosis of left carotid artery; R94.31 Abnormal electrocardiogram [ECG] [EKG]
CPT/HCPCS: C1769; C1887; C1894; J0282; J1644; J2001; J2250; J2720; J3010; J3370; J3475; J3480; J3490; J7030; J7040; J7050; J7060

== ENCOUNTER 2017-04-17 09:18 | Inpatient (IN) | payer MEDICARE ==
[~2017-04-17] VITALS: Ht 160 cm; Wt 90.1 kg
--- NOTE | ~2017-04-17 | DS ---
PATIENT'S NAME: CHAZ JEFF [facility] AGE: 61 Y [address] ROOM: [address] [place], [place] [address] LOCATION: GPCU ADMIT DATE: 04/18/2017 Discharge Summary DISCHARGE DATE: 04/24/2017 FAMILY PHYSICIAN: PHYSICIAN, ESME ATTENDING PHYSICIAN: Yonatan Cortes HISTORY/HOSPITAL COURSE: The patient is a 61-year-old white female who underwent a recent non-STEMI and she had begun staged coronary artery stenting with Dr. Byrne. She had a successful RCA stent placed, but from there her vessels were found to torturous and placed her at a higher risk to continue with stenting procedures, and therefore, she was recommended for coronary artery bypass grafting. She saw Dr. Cortes in consultation and agreed to the procedure. Therefore, on 04/18/2017, she underwent coronary artery bypass grafting x2 with the left internal mammary artery to the left anterior descending and a reverse saphenous vein graft to the posterior descending artery. The patient transferred to the ICU following the surgical procedure. She did extubate the following morning. She was found stable to transfer on postoperative day #1 from the ICU to the progressive care floor. While on progressive care, she did work with cardiac rehab. On postoperative day #2, her mediastinal chest tubes, pacemaking wires, and Lew catheter were removed. She had no runs of postoperative atrial fibrillation. She had no healing complications while hospitalized. She nor her family desired any type of skilled services upon discharge from the hospital. Her final pleural chest tube was removed and the following day, she was found stable to go home. Discharge occurred on 04/24/2017. SECONDARY DIAGNOSES: Include chronic obstructive pulmonary disease, diabetes mellitus, obesity, hypertension, and tobacco abuse. DISCHARGE ORDERS: Include a diabetic 1800-calorie diet. Activity levels as per the open heart surgery discharge summary sheet. The patient may remove her dressing from the chest tube site on 04/25/2017 and leave it open to air. The patient was asked to follow up with Dr. Cortes and Dr. Byrne in 2 weeks, both on the same day. Discharge orders include no pulling, pushing, or lifting greater than 10 pounds for 6 weeks or until 05/30/2017. The patient will be contacted by cardiac rehab for outpatient therapy. We did note that the patient was using intermittent oxygen at home. She states that she has had oxygen in her home since 2007. She does not use it. We did ensure that she had adequate oxygen and tubing at home and encouraged use of oxygen. She refused any services from our respiratory care personnel stating that she is covered. DISCHARGE MEDICATIONS: Include, 1. Bystolic 10 mg twice a day. PATIENT'S NAME: CHAZ JEFF [facility] AGE: 61 Y [address] ROOM: [place] [address] LOCATION: GPCU ADMIT DATE: 04/18/2017 Discharge Summary DISCHARGE DATE: 04/24/2017 FAMILY PHYSICIAN: PHYSICIAN, NO ATTENDING PHYSICIAN: Yonatan Cortes 2. Symbicort 160/4.5 mcg 2 puffs per inhalation twice a day. 3. Aspirin 325 mg daily. 4. Albuterol 2.5 mg 2 puffs per inhalation p.r.n. shortness of breath. 5. Benicar 40/25 mg one tab daily. 6. Nitroglycerin sublingual one spray as needed. 7. Plavix 75 mg daily. 8. Lipitor 80 mg daily. 9. NicoDerm patch 7 mg daily. 10. Amiodarone 200 mg twice a day. 11. Norvasc 2.5 mg daily. 12. Colace 100 mg twice a day. 13. Lasix 40 mg q.a.m. 14. Potassium chloride 30 mEq twice a day. 15. [place] 5/325 one to two every 4 to 6 hours. The patient verbalizes understanding of the discharge orders. DISPOSITION: The patient discharged to home in stable condition. EVELINE ALVARENGA APRN FOR DO PONCHO FRANKS/toril /[id number] d: 05/08/17 0028 t: 05/09/17 1215, DISCHARGE SUMMARY
--- NOTE | ~2017-04-17 | OR ---
PATIENT'S NAME: CHAZ JEFF [facility] AGE: 61 Y [address] ROOM: [place] [address] LOCATION: GPCU ADMIT DATE: 04/18/2017 OR/Procedure Report DISCHARGE DATE: FAMILY PHYSICIAN: PHYSICIAN, NO ATTENDING PHYSICIAN: Yonatan Cortes SURGEON: Yonatan Cortes DO FRONT END DRUPAL DEVELOPER: DATE OF PROCEDURE: 04/18/2017 PREOPERATIVE DIAGNOSES: 1. Multivessel coronary artery disease. 2. Severe chronic obstructive pulmonary disease. 3. Diabetes. 4. Obesity. 5. Hypertension. POSTOPERATIVE DIAGNOSES: 1. Multivessel coronary artery disease. 2. Severe chronic obstructive pulmonary disease. 3. Diabetes. 4. Obesity. 5. Hypertension. PROCEDURE PERFORMED: Coronary artery bypass grafting x2 with left internal mammary artery to the left anterior descending and reverse saphenous vein graft to the posterior descending artery. BRIEF HISTORY: Mrs. Jeff is a 61-year-old white female who recently had been admitted with [id number] myocardial infarction. This was approximately 3-1/2 weeks prior to this admission. She underwent stenting of a very tortuous right coronary artery, was brought back for further stenting of the posterior descending artery, and then would be brought back for further stenting of the LAD. Unfortunately, Dr. Byrne was unable to accomplish this secondary to the tortuosity of the vessel and concerns for dissection. Therefore, we were asked to see her in regard to revascularization. She has been brought to the operative suite today after informed consent was obtained for revascularization to the LAD and to the posterior descending artery. She was sterilely prepped and draped in the usual fashion. A sternal incision was made, and the sternum was divided in the midline. Concurrently to this, saphenous vein was harvested endoscopically from the lower extremity. Sternal edges and marrow edges were made hemostatic with Ostene and electrocautery. Mammary retractor was placed. Left internal mammary artery was harvested in standard fashion with surgical clips and electrocautery, and the patient was then heparinized. The mammary was then divided and prepared for bypass. The mammary retractor was removed, and a sternal retractor was placed. The PATIENT'S NAME: CHAZ JEFF [facility] AGE: 61 Y [address] ROOM: [place] [id number] LOCATION: GPCU ADMIT DATE: 04/18/2017 OR/Procedure Report DISCHARGE DATE: FAMILY PHYSICIAN: PHYSICIAN, NO ATTENDING PHYSICIAN: Yonatan Cortes pericardium was opened. Pericardial well was created. Cannulation sutures were placed in the ascending aorta and right atrium for bypass and cardioplegia cannulas, and the patient was cannulated and connected to the bypass pump without difficulty. Cardiopulmonary bypass was initiated after the vein graft was prepared. Crossclamp was applied. Antegrade and retrograde cardioplegia was given, and the heart arrested nicely. Posterior descending artery was identified in the mid to distal region, and end-to-side anastomosis was created with the vein graft. This vein graft was connected to the cardioplegia system. Another 500 mL of vein graft and retrograde cardioplegia was given, and we then anastomosed the left internal mammary artery to the LAD. It should be noted that the LAD was significantly intramyocardial and also this heart was covered with approximately 1 to 1.5 cm of epicardial fat over the entire course of the ventricles. The bulldog was now removed, showing good distal flow and an intact anastomosis. The cross- clamp was removed, and a partial occlusion clamp was placed at the site of the aortic root vent. The root vent was now removed. Warm blood was now initiated via the retrograde cannula, and we performed our proximal anastomosis with 4-0 punch and 6-0 Prolene. With this completed, the partial occlusion clamp was removed, the vein graft was de-aired, bulldog was removed, and distal flow given. Distal sites were hemostatic. Proximal sites were hemostatic. Warm blood was now discontinued. Retrograde cannula was removed. Ventilations were now initiated. Two atrial and one ventricular temporary pacemaking wires were placed. The patient does have a permanent pacer in place, and we weaned from bypass without difficulty. Venous cannula was removed. Appropriate volume returned from the pump to the patient. The ascending aortic cannula was removed, and protamine was given. Four chest tubes were placed; one right pleural, one left pleural, one posterior pericardial, and one anterior mediastinal. The sternum and mediastinum were copiously irrigated with antibiotic-infused saline. The sternum was closed with ZipFix system, and then the soft tissues in layered fashion with 0 Vicryl, 2-0 Vicryl, and 4-0 Monocryl. The patient tolerated the procedure well and was transferred to the intensive care in stable condition. DO WESLEY FRANKS/derik /[id number] d: 04/24/17 1219 t: 04/25/17 0754, OPERATIVE SUMMARY
--- NOTE | ~2017-04-17 | PUL ---
PATIENT'S NAME: CHAZ JEFF [facility] AGE: 61 Y [address] ROOM: [place] [address] LOCATION: [facility] ADMIT DATE: 04/18/2017 Pulmonary DISCHARGE DATE: FAMILY PHYSICIAN: PHYSICIAN, NO ATTENDING PHYSICIAN: Yonatan Cortes NAME OF PROCEDURE: Bedside Spirometry DATE OF PROCEDURE: April 17, 2017 TECH: RHONDA Wagner REASON FOR EXAM: Pre-Surgical Evaluation RESULTS: FVC was 2.14 liters which is 71% of predicted and low, FEV1 was 1.11 liters which is 48% of predicted and low, and FEV1/FVC was 52% and low. The flow volume curve revealed significant airflow limitation. After bronchodilator administration FVC decreased to 1.97 liters and FEV1 decreased to 1.01 liters. FEV1/FVC was 51.1%. PHYSICIAN INTERPRETATION: The patient has severe airflow limitation without a significant bronchodilator response. MD LUCRECIA ERWIN/patti /[id number] dtt: 04/18/17 1526 , DAYNA CRISOSTOMO dtd: 04/18/17 1114
[~2017-04-17 09:18] MED LIST changes: +ATIVAN 1 MG1 MG PO; +LIPITOR80 MG PO
[2017-04-17 10:25] LABS: BICARBONATE 24.1 mmol/L (18.0-23.0); PCO2 38 mmHg (35-45); PO2 76 mmHg (80-90)
[2017-04-17 11:15] LABS: BILIRUBIN URINE NEGATIVE (NEGATIVE); BLOOD URINE 10 /UL (NEGATIVE); COLOR URINE YELLOW (YELLOW); GLUCOSE URINE NEGATIVE (NEGATIVE); KETONE URINE NEGATIVE (NEGATIVE); LEUKOCYTES URINE 25 /UL (NEGATIVE); NITRITE URINE NEGATIVE (NEGATIVE); PROTEIN URINE NEGATIVE (NEGATIVE); TURBIDITY URINE CLEAR (CLEAR); UROBILINOGEN URINE NORMAL (NORMAL)
[2017-04-17 11:18] LABS: ALBUMIN 3.5 gm/dL (3.5-5.0); ANION GAP 10.1 (10.0-19.0); CALCIUM 9.2 mg/dL (8.5-10.5); CREATININE 0.9 mg/dL (0.5-1.1); PHOSPHORUS 3.2 mg/dL (2.5-4.9); POTASSIUM 4.1 mMol/L (3.7-5.1)
[2017-04-17 11:27] LABS: BACTERIA URINE NEGATIVE (NEGATIVE); EPITHELIAL URINE RARE #/HPF (NEGATIVE); RBC URINE NEGATIVE #/HPF (NEGATIVE); WBC URINE RARE #/HPF (NEGATIVE)
[2017-04-18] MEDS ORDERED: NICODERM / HABIT7 MG TRANS (06:04)
[2017-04-18 10:36] LABS: HEMOGLOBIN 8.2 g/dL (10.0-15.0); MCH 34.6 pg (27.0-34.0); MCHC 34.2 gm/dL (32.0-36.5); MCV 101.3 fl (83.0-98.0); MPV 10.3 fl (9.4-12.4); PLATELET COUNT 130 K/uL (150-450); RBC 2.37 M/uL (3.50-5.50); RDW-CV 14.1 % (11.9-14.6); WBC 7.5 K/uL (4.0-11.0)
[2017-04-18 10:43] LABS: PTT 31 SECONDS (25-32)
[2017-04-18 10:44] LABS: INR - (THERAPEUTIC) 1.22 (0.92-1.07)
[2017-04-18 10:45] LABS: PROTIME 12.8 SECONDS (9.8-11.4)
[2017-04-18 11:07] LABS: ALPHA ANGLE 69 degrees; ALPHA ANGLE 70 degrees (70-81); CLOT FORMATION TIME 107 seconds; CLOTTING TIME 150 seconds; CLOTTING TIME 79 seconds (43-82); MAXIMUM CLOT FIRMNESS 52 mm; MAXIMUM CLOT FIRMNESS 56 mm (51-72); MAXIMUM LYSIS 0 %
[2017-04-18 11:29] LABS: BICARBONATE 25.1 mmol/L (18.0-23.0); PCO2 56 mmHg (35-45); PO2 140 mmHg (80-90)
[2017-04-18 11:39] LABS: BICARBONATE 26.1 mmol/L (18.0-23.0); PCO2 49 mmHg (35-45); PO2 335 mmHg (80-90); POTASSIUM 3.9 mEq/L (3.7-5.1); SODIUM 142 mEq/L (135-145)
[2017-04-18 11:40] LABS: BICARBONATE 26.5 mmol/L (18.0-23.0); PCO2 44 mmHg (35-45); PO2 212 mmHg (80-90)
[2017-04-18 11:40] LABS: ANION GAP 10.9 (10.0-19.0); CALCIUM 8.2 mg/dL (8.5-10.5)
[2017-04-18 11:41] LABS: POTASSIUM 4.9 mEq/L (3.7-5.1); SODIUM 141 mEq/L (135-145)
[2017-04-18 11:41] LABS: POTASSIUM 4.9 mMol/L (3.7-5.1)
[2017-04-18 11:42] LABS: BICARBONATE 26.9 mmol/L (18.0-23.0); PCO2 50 mmHg (35-45); PO2 282 mmHg (80-90); POTASSIUM 5.1 mEq/L (3.7-5.1); SODIUM 140 mEq/L (135-145)
[2017-04-18 11:43] LABS: BICARBONATE 25.1 mmol/L (18.0-23.0); PCO2 60 mmHg (35-45); PO2 167 mmHg (80-90); POTASSIUM 4.9 mEq/L (3.7-5.1); SODIUM 140 mEq/L (135-145)
[2017-04-18 13:14] LABS: BICARBONATE 23.7 mmol/L (18.0-23.0); PCO2 54 mmHg (35-45)
[2017-04-18 13:15] LABS: PO2 97 mmHg (80-90)
[2017-04-18 14:36] LABS: BICARBONATE 26.2 mmol/L (18.0-23.0); PCO2 52 mmHg (35-45); PO2 99 mmHg (80-90)
--- NOTE | 2017-04-18 18:05 | NUR ---
1516 Went past Eliseo' room to come and visit with her but she was still vented so I will attempt to stop by tomorrow and see her to talk with her about eventual dismissal plans. CM to continue to follow and assist.
--- NOTE | 2017-04-18 20:05 | NUR ---
Pt in CPAP 5/PS 8, weaning parameters NIF -28, VC 821, RSBI 70-80. Pt has good strong cough. Extubated at 1956 to 4L NC. Will continue with post CABG orders.
--- NOTE | 2017-04-18 21:52 | NUR ---
Significant Event: PT ARRIVED TO ICU FROM OR AT 1107 INTUBATED AND SEDATED; SEDATION TURNED OFF AT 1245. PT NOT AWAKE UNTIL AFTER 1600; CPAP TRIALS X2 FAILED BETWEEN 1630 AND 1800. CPAP TRAIL PASSED AND EXTUBATED AT 1956; PLACED ON 4L NC AND SATTING WELL. STILL DROWSY BUT EASILY AROUSES. NITRO GTT ON AND OFF THROGHOUT SHIFT; 5% ALBUMIN 500 ML GIVEN X2 THIS SHIFT. SODIUM BICARB GIVEN EARLY IN SHIFT DUE TO LOW BASE EXCESS ON ABG. NO ELECTROLYTES REPLACED. TOLERATING PO INTAKE FAIR, NO NAUSEA/VOMITING FOR THIS RN. TAKING PILLS WELL. TORDOL IVP GIVEN WHILE ON VENT, NORCO GIVEN AFTER EXTUBATION. PT CURRENTLY UP IN CHAIR. Follow up: WEAN NITRO/EPI YOMAIRA MAGANA RN
[2017-04-18 23:27] LABS: HEMATOCRIT 28.1 % (33.0-46.0)
[2017-04-19 04:32] LABS: BICARBONATE 28.5 mmol/L (18.0-23.0); PCO2 47 mmHg (35-45)
[2017-04-19 04:34] LABS: PO2 78 mmHg (80-90)
[2017-04-19 04:45] LABS: ANION GAP 10.5 (10.0-19.0); CALCIUM 8.2 mg/dL (8.5-10.5)
[2017-04-19 04:48] LABS: POTASSIUM 3.5 mMol/L (3.7-5.1)
[2017-04-19 04:50] LABS: HEMATOCRIT 26.5 % (33.0-46.0); HEMOGLOBIN 9.4 g/dL (10.0-15.0); MCH 34.9 pg (27.0-34.0); MCHC 35.5 gm/dL (32.0-36.5); MCV 98.5 fl (83.0-98.0); RBC 2.69 M/uL (3.50-5.50); RDW-CV 14.1 % (11.9-14.6)
--- NOTE | 2017-04-19 05:05 | NUR ---
Significant Event: Patient slightly drowsy, oriented x3. SR, hr 60s. BP labile with nitro titrated to keep sbp<140, and epi titrated for CI >2.2. Extubated at 1956 to 4l/nc. Lung sounds diminished. CT x2 pleural intact with 160ml out. CT x2 mediastinal intact with 90ml out, all chest tubes with serosanguinous drainage. Bowel sounds hypoactive, no bm this shift. Tolerating whole pills well. Lew intact, marginal UOP. Albumin 5% given [id number] this shift. No new or worsening skin issues. R)IJ intact, insulin, epi, d5lr, amio, bicarb infusing. 2 tabs of norco given x2, morphine 2mg iv given x1 for pain. Follow up: Continue
[2017-04-19 06:09] LABS: PLATELET COUNT 121 K/uL (150-450)
--- NOTE | 2017-04-19 08:38 | NUR ---
CONSULT FOR CARDIAC/CONSISTENT CARB DIET EDUCATION POST CABG RECEIVED. PT HAD CABG ON 04/18. NOT ON VENT NOW. WILL ATTEMPT TO COMPLETE DIET EDUCATION WHEN APPROPRIATE PRIOR TO DISCHARGE.
--- NOTE | 2017-04-19 14:51 | NUR ---
Introduced self and CM role to Tressa. Tressa tells me that she lives here in [place] with her son and she plans on going home upon dismissal. She does not have a PCP currently, but I let her know I would stop back by her room tomorrow and talk with her more about this when she was more awake and possibly when family was in the room with her. Tressa was sleepy towards then end of our conversation so I just told her I would come back by tomorrow to discuss DME, PCP and other dismissal needs/questions. Left my name on her whiteboard incase further questions came up. Plan home with family support at this time. CM to continue to follow and assist.
--- NOTE | 2017-04-19 16:05 | NUR ---
Significant Event: Patient remains drowsy but awakens easily. A/Ox3. Denies any numbness/tingling. SR-paced HR 60's.Epicardial pacer wires intact capped and taped to chest.SBP 114-150.Bystolic restarted today. Afebrile. On 4L NC SPO2. Lungs asculated clear-clear/diminished. Does not like to participate in respiratory therapy treatments or IS at bedside, needs a lot of encouragement.CTx4, no fluctuations or crepitus noted. Mediastinal had 60ml serosang drainage and pleural had 150ml serosang drainage.Active bowel sounds,no Bm this shift. ADA diet with 2000FR/24h, refused all meals. Central line and artline discontinued today. PRN [place] givenx2, been rating pain 2-3/10. Up to chair with 2 assist Follow up:Transfer to PCU.Continue to encourage deep breathing.
[2017-04-19 17:23] LABS: BICARBONATE 27.2 mmol/L (18.0-23.0); PCO2 41 mmHg (35-45); PO2 58 mmHg (80-90)
--- NOTE | 2017-04-19 18:26 | NUR ---
Prior to transferring patient to PCU notified of decreased UOP x2h, new order for albumin 25% 100ml, and to follow albumin with 2mg bumex ivx1. Also reported that patient was still drowsy but awakens easily and follows commands, A/Ox3,did an ABG and called results to DR. Cortes without any further new orders, ok to transfer to PCU. On 2l NC, continue to titrate per orders. Updated taylor on new orders prior to handing off. see shift sumary for rest of report.
--- NOTE | 2017-04-20 07:04 | NUR ---
Significant Event: PT UP TO CHAIR. SLEEPY, BUT ABLE TO ANSWER QUESTIONS APPROPRIATELY, AND THEN GOES BACK TO SLEEP. PT NOT WANTING TO GIVE BIRTHDATE WITH EACH MEDICATION PASS. TRANSFERED TO BED WITH 2 ASSIST, LEGS WEAK, L) ARM HANGS. PT DOESN'T TOLERATE HAVING HER HEAD DOWN FLAT. NORCO 1 TAB GIVEN X 2, NORCO 2 TAB GIVEN X 1 AT 0545 FOR PAIN. PT WILL HAVE COUGHING SPELLS, UNABLE TO USE HEART HUGGER WELL, WILL ATTEMPT TO USE BOTH ARMS, BUT UNABLE TO SQUEEZE THE HANDLES TOGETHER. NURSING HOLDS HEART HUGGER FOR COUGHS, PT WILL ATTEMPT TO SUCTION MOUGH WITH YANKER SUCTION. WITH HER COUGH, HER RESPIRATION RATE WILL BE HIGH AT 60, FOR ABOUT 5 MIN, WITH EXPIRATIORY WHEEZING, PURSED LIPPED BREATHING AND ATTEMPTING TO "TRIPOD". ENCOURGE PT TO NOT USE HER ARMS TO POSITION HERSELF. PT ASK FREQUENTLY FOR HER INHALER FOR RESPIATORY DISTRESS. EXPLAIN THAT IT IS NOT HERE, AND THAT SHE CAN HAVE A TREATMENT EVERY 2 HOURS. PT HAS SPENT THE NIGHT WITH HEAD OF BED ELEVATED 50 DEGREES OR MORE. PT WILL COUGH WITH ANY CHANGE OF POSITION. PT WILL RATE PAIN AT 3-8 WITH SLEEPING NOTED AFTER MEDICATIONS GIVEN. NICOTINE PATCH APPLIED TO L) UPPER ARM. PERIPHERAL IV TO L) AC AND R) HAND. DRESSING TO R) IJ AND L) ARTLINE SITE C/D/I. DRESSING INTACT TO STERNAL INCISION AND CEST TUBE SITES X4. PACER WIRES CAPPED AND TAPED TO CHEST. HARVEST SITE TO R) LEG AND GROIN. [place] INTACT WITH CLEAR YELLOW URINE. KNEE HIGH TEDS REMOVED AT BEDTIME. HEARTHUGGER AND SURGICAL BRA IN PLACE. Follow up: STERNAL PRECATIONS, ENCOURAGE ACTIVITY, AND IS/FLUTTER VALVE. ENCOURAGE FOOD, MONITOR FLUID INTAKE.
[2017-04-20 08:44] LABS: HEMATOCRIT 31.7 % (33.0-46.0); HEMOGLOBIN 10.4 g/dL (10.0-15.0); MCH 33.7 pg (27.0-34.0); MCHC 32.8 gm/dL (32.0-36.5); MCV 102.6 fl (83.0-98.0); MPV 11.3 fl (9.4-12.4); RBC 3.09 M/uL (3.50-5.50); RDW-CV 14.9 % (11.9-14.6); WBC 15.3 K/uL (4.0-11.0)
[2017-04-20 09:01] LABS: ANION GAP 13.3 (10.0-19.0); CALCIUM 8.9 mg/dL (8.5-10.5); CREATININE 1.4 mg/dL (0.5-1.1); POTASSIUM 4.3 mMol/L (3.7-5.1)
--- NOTE | 2017-04-20 19:09 | NUR ---
Significant Event: Patient A/O x 3. Up with 2A. Does not follow sternal precautions and constantly needs reinforcement. Often not cooperative or pleasant with cares. SBP 150-190's today. Additional PO medications started today and then order to start Nitro gtt to keep SBP <140. Notify MD if SBP >160 consistently. Sternum open to air. 2 pleural drains switched to bulb drains with 100 ml out of right drain and 10 ml out of left drain. 290 out of pleural hemovac before switched to bulb drains. mediastinal drains pulled today and long with pacer wires. Lew removed at 1610. ACHS accu checks. RH and LAC PIV SL. Refused to do any other activity today. Up in chair for about 4 hours. Follow up: Continue as per plan of care. Encourage activity and PO intake. Manage blood pressures.
--- NOTE | 2017-04-21 03:57 | NUR ---
A&Ox3. ON 2L 02 SATS REMAINING >90%. NEEDS REMINDERS TO BREATHE THROUGH NOSE. PAIN WITH COUGHING. NORCO 2 TABS GIVEN AROUND 0300 FOR PAIN AT STERNAL SITE. NEEDS LOTS OF REINFORCEMENT TEACHING WTIH STERNAL PRECAUTIONS. UP TO BEDSIDE COMMODE WITH 2 ASSIST AND USE OF GAIT BELT. IV TO R) HAND D/C. L) AC IV INTACT WITH NITRO RUNNING AT 20MCG TO CONTROL BPS. BPS WERE 200'S. DR. JOHNSON ORDERS 10MG HYDRALAZINE AND 2MG MORPHINE TO CONTROL BPS. NOW SYSTOLIC 120-130s. RESTING IN BED. SOMEWHAT AGITATED AT TIMES WHEN IN PAIN. 2 PLEURAL EARLENE DRAINS WITH SEROUSANG. DRAINAGE. TOTAL OF 130ML OUT. 1+ EDEMA TO LEGS. TO CON'T WITH POC.
--- NOTE | 2017-04-21 17:11 | NUR ---
Significant Event: A/OX3, VERY DROWSY THROUGHOUT SHIFT. GETS UP 1 ASSIST TO BSC AND TO CHAIR, UNSTEADY AT TIMES. VSS ON 2L PER NC. NTG DRIP OFF, SBP MAINTAINED <140 ALL SHIFT. 2 TABS OF NORCO GIVEN AT 0940 FOR PAIN. CHEST TUBE SITE DRESSING IS C/D/I, LEFT EARLENE-40ml OUT, RIGHT EARLENE-130ml OUT, SEROSANGIOUS DRAINAGE OUT BOTH. CHEST INCISION OPEN TO AIR, CLOSED. PT. HAS BEEN INCONTIENT AT TIMES. BIBLER TO PULL EARLENE'S TOMORROW. RIGHT LEG HARVEST SITE SUTURED, NO DRAINAGE NOTED. BRUISING REMAINS TO GROIN SITES. ACCUCHECKS WNL THIS SHIFT. Follow up: CONTINUE OF POC.
--- NOTE | 2017-04-22 04:25 | NUR ---
Significant Event:A&OX3. DROWSY AT TIMES. BUT WAKES AND IS VERY AGITATED, YELLING "I WANT TO GO HOME." MORPHINE GIVEN FOR PAIN AT 1250. NORCO 2 TABS GIVEN AT 0340. CON'T TO COMPLAIN OF CHEST PAIN AND BACK PAIN. NOW RESTING IN RECLINER. USES SUCTION FREQUENTLY. NEW PIV STARTED IN R) HAND. 20G SL. R) EARLENE DRAINS 100ML. L) EARLENE 10ML. BOTH SEROUSANG. DRAINAGE. DRESSING C/D/I. STERNAL INCISION APPROXIMATED NO SIGNS OF INFECTION. ACHS ACCUCHECK. Follow up: TO CON'T WITH POC.
[2017-04-22 05:19] LABS: ALBUMIN 3.3 gm/dL (3.5-5.0); ANION GAP 12.3 (10.0-19.0); CALCIUM 8.7 mg/dL (8.5-10.5); PHOSPHORUS 2.6 mg/dL (2.5-4.9); POTASSIUM 3.3 mMol/L (3.7-5.1)
--- NOTE | 2017-04-22 16:06 | NUR ---
Significant Event: A/OX3, VSS ON ROOM AIR. PT. REFUSED ACCU-CHECK THIS AM, REFUSED TO TAKE MEDS UNTIL DR. JOHNSON CAME AROUND, TOOK MEDS LATER, WAS MORE COOPERATIVE REST OF SHIFT. WALKED 1 ASSIST WITH GAIT BELT TO BATHROOM AND OUT TO HALLWAY THEN BACK TO CHAIR, PT. DID WELL. NORCO GIVEN AT 1032 FOR COMPLAINTS OF PAIN. PT. CALLED FAMILY EARLIER TODAY FOR THEM TO COME UP RIGHT AWAY AND SEE HER, INFORMED DAUGHTER WHAT WAS GOING ON, AND TOLD SON THAT SHE HAS REFUSED THINGS, WHEN ASKED ABOUT IF WE WERE JUST GOING TO LET HER LAY AROUND IN BED ALL DAY. SON BACK UP THIS AFTERNOON AND INFORMED HIM OF WHAT SHE DID & PT. INFORMED HIM ALSO OF THIS. LEFT EARLENE PULLED TODAY, RIGHT EARLENE HAD 110mL SEROUSANGIOUS DRAINGE OUT, DRESSING CHANGED TO CHEST TUBE SITES-C/D/I. CHEST INCISION OPEN TO AIR. SUTURES INTACT TO RIGHT LEG HARVEST SITES. SLIV TO R)HAND. Follow up: CONTINUE WITH POC.
--- NOTE | 2017-04-23 04:09 | NUR ---
Significant Event: a&ox3. Up with one assist, GB, and walker. No PRN pain medication given this shift. More cooperative with cares. Incontinent of urine x1. Loose BM this shift. R) EARLENE drain 50ml serousang. drainage. Dressing on chest tube site C/D/I. SLIV to R) hand, flushes well. Sternal incision approx. no s/s of infection. Sleeps most of NOC. Follow up: To con't with POC
[2017-04-23 06:07] LABS: ALBUMIN 3.1 gm/dL (3.5-5.0); ANION GAP 11.2 (10.0-19.0); CALCIUM 8.6 mg/dL (8.5-10.5); POTASSIUM 3.2 mMol/L (3.7-5.1)
--- NOTE | 2017-04-23 10:46 | NUR ---
A - NUTRITION F/U. A/O. NO NEW LABS. NO EDEMA. DIET: DIABETIC W/ 200 ML FR. INTAKE BITES/REFUSED. PT STATES SHE IS PICKY. REFUSES SUPPLEMENTS. HX OF LAP BAND, DOES NOT TOLERATE BREAD, PORK, CHICKEN. FAMILY BRINGING IN FOOD FOR PT. ENCOURAGED ORAL INTAKE. D - AT RISK W/ INADEQUATE ORAL INTAKE R/T DECREASED APPETITE AEB INTAKE RECORD. I - GOAL: 50% INTAKE BY DISMISSAL. M/E - WILL CONT TO MONITOR AND ENCOURAGE PO INTAKE. F/U IN 3-5 DAYS.
--- NOTE | 2017-04-23 11:51 | NUR ---
1022 Call from stating that Tressa will most likely be ready to dismiss to home tomorrow and he just wanted to give me a heads up to this. I let him know that I was planning on seeing Tressa later today and talk with her about dismissal plans. I inquired if she might be a good canidate for [facility] when she goes home. says that she would but she might not be in agreement to this. He says if she is in agreement with [facility], then he will be happy to fill out [facility] F2F to get that for her. I let him know that I would update him after our conversation and then go from there. was fine with this plan. CM to continue to follow and assist.
--- NOTE | 2017-04-23 16:50 | NUR ---
Significant Event: A/OX3, VSS ON ROOM AIR. PT. SHOWERED TODAY. LAST EARLENE DRAIN PULLED TODAY, DR. JOHNSON CHANGED DRESSING-C/D/I. PT. WANTING TO GO HOME, CALLED DR. JOHNSON, HE SAYS SHE HAS TO WAIT UNTIL AM, NEEDS CHEST X-RAY & LABS IN AM. PT. GETS UP 1 ASSIST WITH GAIT BELT/WALKER. NO COMPLAINTS OF PAIN. CHEST INCISION IS OPEN TO AIR, NO DRAINAGE. SUTURES INTACT TO RIGHT LEG HARVEST SITES X2. BRUISING REMAINS TO BILAERAL GROINS. POSSIBLE D/C TO HOME IN AM. SLIV TO R)HAND. PT. IN BETTER MOOD TODAY. BM X3. VOIDING FINE. Follow up: CONTINUE WITH POC.
[2017-04-24 05:09] LABS: BASOPHIL % 0.4 %; EOSINOPHIL # 0.8 K/uL (0.0-0.5); EOSINOPHIL % 8.7 %; HEMATOCRIT 30.1 % (33.0-46.0); HEMOGLOBIN 10.4 g/dL (10.0-15.0); IMMATURE GRANULOCYTE # 0.1 K/uL (0.0-0.3); IMMATURE GRANULOCYTE % 0.8 %; LYMPHOCYTE % 21.2 %; MCH 34.8 pg (27.0-34.0); MCHC 34.6 gm/dL (32.0-36.5); MCV 100.7 fl (83.0-98.0); MONOCYTE # 0.9 K/uL (0.0-1.0); MONOCYTE % 9.5 %; MPV 10.5 fl (9.4-12.4); NEUTROPHIL # (ANC) 5.7 K/uL (1.8-7.8); NEUTROPHIL % 59.4 %; NRBC % 0 /100WBC (0-0.00); RBC 2.99 M/uL (3.50-5.50); WBC 9.6 K/uL (4.0-11.0)
[2017-04-24 05:14] LABS: PLATELET COUNT 212 K/uL (150-450)
[2017-04-24 05:35] LABS: ALBUMIN 3.1 gm/dL (3.5-5.0); ANION GAP 11.6 (10.0-19.0); CALCIUM 8.6 mg/dL (8.5-10.5); POTASSIUM 3.6 mMol/L (3.7-5.1); TOTAL PROTEIN 6.1 g/dL (6.0-8.4)
[2017-04-24 05:39] LABS: TOTAL BILIRUBIN 1.1 mg/dL (0.0-1.5)
--- NOTE | 2017-04-24 06:51 | NUR ---
Significant Event: PATIENT A/O X3 VSS. SBP 130-140 HR 60-70. AMBULATES 1 ASSIST TO BATHROOM. C/O PAIN X1 NORCO GIVEN O530. IV IN RT HAND SL. INSISION OPEN TO AIR, NO DRAINAGE. RIGHT LEG HARVEST SITES X2. WANTS TO GO HOME TODAY. Follow up: FOLLOW CARE PLAN.
[2017-04-24] MEDS ORDERED: CORDARONE,PACE200 MG PO (09:41)
[2017-04-24] MEDS ORDERED: NORVASC2.5 MG PO (09:44)
[2017-04-24] MEDS ORDERED: COLACE100 MG PO (09:45)
[2017-04-24] MEDS ORDERED: LASIX40 MG PO (09:46)
[2017-04-24] MEDS ORDERED: K-TAB 10MEQ10 MEQ PO (09:52)
[2017-04-24] MEDS ORDERED: NORCO 5-325 TA1 EACH PO (10:05)
== END 2017-04-24 12:25 | disposition disaster alternative care site (69) | DRG 236 ==
LOC: GRAD 09:18 → EDSTATUS 04-18 → GPOC 04-18 → GICU 04-18 05:00 → GPCU 04-19 18:03
PROVIDERS: ADMIT Thoracic Surgery (Cardiothoracic Vascular Surgery)
PROC: 02100A9 Bypass Coronary Artery, One Artery from Left Internal Mammary with Autologous Arterial Tissue, Open Approach (ICD-10-PCS; principal; 2017-04-18)
PROC: 021009F Bypass Coronary Artery, One Artery from Abdominal Artery with Autologous Venous Tissue, Open Approach (ICD-10-PCS; principal; 2017-04-18)
DX: I25.110 Atherosclerotic heart disease of native coronary artery with unstable angina pectoris (principal); J44.9 Chronic obstructive pulmonary disease, unspecified; I10 Essential (primary) hypertension; E11.9 Type 2 diabetes mellitus without complications; E66.9 Obesity, unspecified; Z68.34 Body mass index [BMI] 34.0-34.9, adult
CPT/HCPCS: C1769; C1887; C1894; J0171; J0282; J0360; J1644; J1650; J1885; J2001; J2150; J2250; J2270; J2440; J2720; J3010; J3370; J3475; J3480; J3490; J7030; J7040; J7050; J7060; J7121; P9045; P9047

== ENCOUNTER → 2017-05-10 | Outpatient (CLI) | payer MEDICARE ==
[~2017-05-10] MED LIST changes: +COLACE100 MG PO; +CORDARONE,PACE200 MG PO; +K-TAB 10MEQ10 MEQ PO; +LASIX40 MG PO; +NICODERM / HABIT7 MG TRANS; +NORCO 5-325 TA1 EACH PO; +NORVASC2.5 MG PO
[2017-05-10 10:31] LABS: BASOPHIL # 0.1 K/uL (0.0-0.2); BASOPHIL % 0.8 %; EOSINOPHIL # 0.7 K/uL (0.0-0.5); EOSINOPHIL % 10.9 %; HEMATOCRIT 36.1 % (33.0-46.0); HEMOGLOBIN 12.2 g/dL (10.0-15.0); IMMATURE GRANULOCYTE % 0.2 %; LYMPHOCYTE # 1.2 K/uL (0.8-4.0); LYMPHOCYTE % 17.8 %; MCH 34.1 pg (27.0-34.0); MCHC 33.8 gm/dL (32.0-36.5); MCV 100.8 fl (83.0-98.0); MONOCYTE # 0.5 K/uL (0.0-1.0); MONOCYTE % 7.6 %; NEUTROPHIL # (ANC) 4.1 K/uL (1.8-7.8); NEUTROPHIL % 62.7 %; NRBC % 0 /100WBC (0-0.00); RBC 3.58 M/uL (3.50-5.50); RDW-CV 14.8 % (11.9-14.6); WBC 6.6 K/uL (4.0-11.0)
[2017-05-10 10:32] LABS: PLATELET COUNT 342 K/uL (150-450)
[2017-05-10 10:48] LABS: ALBUMIN 3.3 gm/dL (3.5-5.0); ANION GAP 10.7 (10.0-19.0); CALCIUM 9.5 mg/dL (8.5-10.5); CREATININE 1.1 mg/dL (0.5-1.1); POTASSIUM 3.7 mMol/L (3.7-5.1); TOTAL PROTEIN 7.3 g/dL (6.0-8.4)
[2017-05-10 10:49] LABS: TOTAL BILIRUBIN 0.6 mg/dL (0.0-1.5)
== END ==
LOC: LNHI 10:25
PROVIDERS: Internal Medicine Cardiovascular Disease
DX: I20.0 Unstable angina (principal); E78.2 Mixed hyperlipidemia